=== PATIENT | male | born 1945 | race African-American/Black ===

== ENCOUNTER 2018-08-30 21:34 | Emergency (ER) | payer OTHER, MEDICAID ==
[~2018-08-30] VITALS: Ht 172.7 cm; Wt 68.9 kg
[2018-08-30] MEDS ORDERED: OMEPRAZOLE10 M1 ORAL (21:43)
[2018-08-30] MEDS ORDERED: TRAMADOL HCL50 MG ORAL (21:43)
[2018-08-30] MEDS ORDERED: PROSCAR5 MG ORAL (21:43)
[2018-08-30 21:50] VITALS: BP 163/87
--- NOTE | 2018-08-30 21:52 | NUR ---
ED Nurse Note: Patient walked in from home complaining of severe right arm and right leg pain 10/10. Also patient complaining ov nausea since this morning after he had milk. AAO x4, VSS at this time, skin is dry, intact, warm to touch. Per patient severe pain started today at the [facility].
[2018-08-30] MEDS ORDERED: Ketorolac 30mg Inj IV ONE (22:00)
--- NOTE | 2018-08-30 22:01 | Emergency Room Report ---
History of Present Illness General Chief Complaint: Pain Source: Patient Present Illness HPI Is a 72-year-old male with a history osteoporosis and arthritis. He presents with chief complaint of right-sided pain. Onset was acute and occurred about to 3 weeks ago. Pain came on all of a sudden. Pain is sharp and spastic in nature. Lasted a few seconds. He went to urgent care a few days ago. Said that they gave him fluids and Toradol and sent him home. Pain continue. He told triage nurse that he has abdominal pain but he has no pain with me. Nothing made it better. Nothing made it worse. No focal deficit. No slurred speech. Allergies: Coded Allergies: No Known Allergies (Unverified , 08/30/18) Patient History Past Medical History: see triage record, old chart reviewed Past Surgical History: other Pertinent Family History: none Social History: Denies: smoking Immunizations: other Reviewed Nursing Documentation: PMH: Agreed; PSxH: Agreed Nursing Documentation-PMH Past Medical History: No History, Except For Review of Systems Eye: Denies: eye pain, blurred vision ENT: Denies: ear pain, nose congestion, throat swelling Respiratory: Denies: cough, shortness of breath Cardiovascular: Denies: chest pain, palpitations Gastrointestinal: Denies: abdominal pain, diarrhea, nausea, vomiting Musculoskeletal: Reports: muscle pain; Denies: back pain, joint pain Skin: Denies: rash Neurological: Denies: headache, numbness Endocrine: Denies: increased thirst, increased urine Hematologic/Lymphatic: Denies: easy bruising All Other Systems: negative except mentioned in HPI Physical Exam Vital Signs Date Time Temp Pulse Resp B/P (MAP) Pulse Ox O2 Delivery O2 Flow Rate FiO2 08/30/18 21:36 98.8 106 21 163/87 98 Room Air vitals with high blood pressure Sp02 EP Interpretation: reviewed, normal General Appearance: well appearing, no apparent distress, alert Head: normocephalic, atraumatic Eyes: bilateral eye PERRL, bilateral eye EOMI ENT: hearing grossly normal, normal pharynx Neck: full range of motion, supple, no meningismus Respiratory: chest non-tender, lungs clear, normal breath sounds Cardiovascular #1: regular rate, rhythm, no murmur Gastrointestinal: normal bowel sounds, non tender, no mass, no organomegaly, no bruit, non-distended Musculoskeletal: back normal, gait/station normal, normal range of motion Psychiatric: mood/affect normal Skin: warm/dry Medical Decision Making Diagnostic Impression: Primary Impression: Right arm pain ER Course Patient presents with pain syndrome. Occasionally he would scream out in pain but there is no source of any pain. There is no evidence of any trauma. Abdomen exam is soft. This may be radicular pain since he has sciatica. He may have cervical radiculopathy. Lab Results Impression labs normal Last Vital Signs Date Time Temp Pulse Resp B/P (MAP) Pulse Ox O2 Delivery O2 Flow Rate FiO2 08/30/18 21:50 98.8 21 163/87 98 Room Air 08/30/18 21:36 106 Status: improved Disposition: HOME, SELF-CARE Condition: Stable Scripts Prednisone* (PREDNISONE*) 20 Mg Tablet 20 MG ORAL DAILY, #5 TAB Prov: Chago uDncan MD 08/30/18 Ibuprofen* (MOTRIN*) 600 Mg Tablet 600 MG ORAL THREE TIMES A DAY, #30 TAB 0 Refills Prov: Chago Duncan MD 08/30/18 Hydrocodone/Acetaminophen 5-325* (HYDROCODONE/ACETAMINOPHEN 5-325*) 1 Each Tablet 1 TAB ORAL Q6H PRN for For Pain, #20 TAB 0 Refills Prov: Chago Duncan MD 08/30/18 Additional Instructions: Follow-up with your doctor in 7 days. Return if symptom worsen. Chago Duncan MD Aug 30, 2018 22:01
[2018-08-30 22:30] LABS: APPEARANCE,URINE CLEAR; BILIRUBIN, URINE NEGATIVE (NEGATIVE); COLOR,URINE PALE YELLOW; EOSINOPHILS % (AUTO) 0.2 % (0.0-3.0); GLUCOSE, URINE (UA) NEGATIVE (NEGATIVE); HEMATOCRIT 44.2 % (42.0-52.0); HEMOGLOBIN 14.2 G/DL (14.2-18.0); KETONES,URINE NEGATIVE (NEGATIVE); LEUKOCYTE ESTERASE ,URINE NEGATIVE (NEGATIVE); LYMPHOCYTES % (AUTO) 20.3 % (20.0-45.0); MEAN CORPUSCULAR VOLUME 85 FL (80-99); MONOCYTES % (AUTO) 10.5 % (1.0-10.0); NEUTROPHILS % (AUTO) 67.1 % (45.0-75.0); NITRITE,URINE NEGATIVE (NEGATIVE); PH,URINE 6 (4.5-8.0); PLATELET COUNT 393 K/UL (150-450); PROTEIN,URINE NEGATIVE (NEGATIVE); RED BLOOD COUNT 5.19 M/UL (4.70-6.10); RED CELL DISTRIBUTION WIDTH 12.8 % (11.6-14.8); UROBILINOGEN,URINE NORMAL MG/DL (0.0-1.0); WHITE BLOOD COUNT 8.5 K/UL (4.8-10.8)
[2018-08-30 22:38] LABS: ANION GAP 11 mmol/L (5-15); BLOOD UREA NITROGEN 12 mg/dL (7-18); CALCIUM 9.7 MG/DL (8.5-10.1); CARBON DIOXIDE 28 MMOL/L (21-32); CHLORIDE 103 MMOL/L (98-107); POTASSIUM 4.4 MMOL/L (3.5-5.1); SODIUM 142 MMOL/L (136-145)
[2018-08-30] MEDS ORDERED: PREDNISONE20 MG ORAL (22:49)
[2018-08-30] MEDS ORDERED: IBUPROFEN600 MG ORAL (22:49)
[2018-08-30] MEDS ORDERED: HYDROCODON-ACE1 EA15 ORAL (22:49)
[2018-08-30 22:52] VITALS: BP 163/87
--- NOTE | 2018-08-30 22:53 | NUR ---
ER DISCHARGE NOTE: Patient is cleared to be discharged per ERMD, pt is aox4, on room air, with stable vital signs. pt was given dc and prescription instructions, pt was able to verbalize understanding, pt id band and iv site removed without complications. pt is able to ambulate with steady gait. pt took all belongings.
[2018-08-30] MEDS ORDERED: LACTULOSE20 GM/301 ORAL (22:58)
== END 2018-08-30 22:55 | disposition home or self-care (01) ==
LOC: EMR 22:00
DX: M79.601 Pain in right arm (principal)
CPT/HCPCS: 36415; 80048; 80307; 81001; 85025; 96361; 96374; 99284; J1885

== ENCOUNTER 2018-09-01 13:06 | Emergency (ER) | payer MEDICARE, MEDICAID ==
[~2018-09-01] VITALS: Ht 165.1 cm; Wt 68.0 kg
[~2018-09-01 13:06] MED LIST: HYDROCODON-ACE1 EA15 ORAL; IBUPROFEN600 MG ORAL; LACTULOSE20 GM/301 ORAL; OMEPRAZOLE10 M1 ORAL; PREDNISONE20 MG ORAL; PROSCAR5 MG ORAL; TRAMADOL HCL50 MG ORAL
[2018-09-01] MEDS ORDERED: UNOBMED (13:10)
--- NOTE | 2018-09-01 13:27 | NUR ---
ED Nurse Note: Patient presents to ER due to RUE/RLE x 3 days; report no injury; reports no redness or swelling. Patient ambulated to the restroom with steady gait. Patient able to move RUE without problem, hold urine specimen cup without problem. Provided ice packs. Bed in lowest position.
[2018-09-01] MEDS ORDERED: LORazepam Inj 2mg/ml 1ml IM ONE (13:45)
[2018-09-01] MEDS ORDERED: Ketorolac 30mg Inj IM ONE (13:45)
[2018-09-01] MEDS ORDERED: LORazepam 1mg tab ORAL ONE (13:45)
[2018-09-01 13:56] VITALS: BP 136/82
[2018-09-01] MEDS ORDERED: Isovue-300 100ml vial INJ PRN (14:15)
--- NOTE | 2018-09-01 14:20 | Emergency Room Report ---
History of Present Illness General Chief Complaint: Pain Source: Patient, Medical Record Present Illness HPI 72-year-old male presenting with right arm pain right leg pain as well as abdominal pain. He says that it's been that way for the last 2 weeks. For his right arm and right leg pain, he says it starts approximately and then goes distally. It is spasmodic and comes and goes. He was actually seen here in the emergency room 2 days ago, got steroids as well as [place] pills but says that has not been helping. He is able to move it fine. No swelling. No trauma. He is also complaining of generalized abdominal pain, chronic constipation. He is passing gas. No abdominal surgeries. He has been nauseous and not been able to eat he said. No chest pain or shortness of breath no fever chills Allergies: Coded Allergies: No Known Allergies (Unverified , 08/30/18) Patient History Past Medical History: see triage record Past Surgical History: none Pertinent Family History: none Reviewed Nursing Documentation: PMH: Agreed; PSxH: Agreed Nursing Documentation-PMH Past Medical History: No History, Except For Hx Hypertension: No - High cholesterol Hx Gastrointestinal Problems: No - Arthritis, osteporosis Review of Systems All Other Systems: negative except mentioned in HPI Physical Exam Vital Signs Date Time Temp Pulse Resp B/P (MAP) Pulse Ox O2 Delivery O2 Flow Rate FiO2 09/01/18 13:03 98.2 93 18 123/78 95 Room Air Sp02 EP Interpretation: reviewed, normal General Appearance: alert, GCS 15, non-toxic, mild distress Head: normocephalic, atraumatic Eyes: bilateral eye normal inspection, bilateral eye PERRL, bilateral eye EOMI ENT: normal ENT inspection, normal pharynx, normal voice, moist mucus membranes Neck: normal inspection, full range of motion, supple Respiratory: normal inspection, lungs clear, normal breath sounds, no respiratory distress, no retraction, no wheezing, speaking full sentences, chest symmetrical Cardiovascular #1: normal inspection, regular rate, rhythm, no edema, normal capillary refill Cardiovascular #2: 2+ radial (R), 2+ radial (L) Gastrointestinal: other - Generalized abdominal tenderness bilateral lower quadrants without guarding or rigidity, normal bowel sounds auscultated Genitourinary: no CVA tenderness Musculoskeletal: other - All extremities full range of motion, warm and well perfused, no swelling, no calf tenderness Neurologic: normal inspection, alert, oriented x3, responsive, motor strength/ tone normal, sensory intact, normal gait, speech normal Psychiatric: normal inspection, judgement/insight normal, memory normal Skin: normal inspection, normal color, no rash, warm/dry, well hydrated, normal turgor Medical Decision Making Diagnostic Impression: Primary Impression: Diverticulitis Additional Impression: Right arm pain ER Course 72-year-old male with right arm and right leg pain Also with abdominal pain for the last 2 weeks Differential Diagnosis: Right arm and leg pain, no signs of trauma, possibly musculoskeletal versus radiculopathy. Not concerned with DVT Gastritis, gastroenteritis, cholecystitis, appendicitis, diverticulitis, SBO, cardiac, UTI/pyelo Plan: Basic labs, ua, ekg pain control CT abdopelvis ER course: Patient has remained stable during ED stay. given pain meds +abx for diverticulitis At this time I do not know the reason for his right arm and right leg pain, however he is moving it fine there is no swelling at all. Says it's been chronic for a month. He's also follows up with his PCP He is tolerating by mouth, repeat abdominal exam is benign, his vital signs remained stable he stable for discharge to home Disposition: Patient is to be discharged to home. Prescriptions given are Ciprofloxacin and Flagyl Patient is instructed to follow up with their primary care doctor within 5 days. Strict return precautions discussed with patient such as fever, chills, worsening/severe abdominal pain, nausea, vomiting, black or bloody stools, which may indicate severe illness. Patient verbalizes understanding and agrees with plan. Please note that this Emergency Department Report was dictated using F[employer]ality[employer] coordinator technology software, occasionally this can lead to erroneous entry secondary to interpretation by the dictation equipment Rhythm Strip EP Interpretation: Yes Rate: 60 Rhythm: NSR, no PVCs, no ectopy Laboratory Tests Test 09/01/18 14:05 White Blood Count 10.7 K/UL (4.8-10.8) Red Blood Count 5.24 M/UL (4.70-6.10) Hemoglobin 14.0 G/DL (14.2-18.0) L Hematocrit 44.4 % (42.0-52.0) Mean Corpuscular Volume 85 FL (80-99) Mean Corpuscular Hemoglobin 26.7 PG (27.0-31.0) L Mean Corpuscular Hemoglobin Concent 31.5 G/DL (32.0-36.0) L Red Cell Distribution Width 12.8 % (11.6-14.8) Platelet Count 395 K/UL (150-450) Mean Platelet Volume 6.2 FL (6.5-10.1) L Neutrophils (%) (Auto) 67.0 % (45.0-75.0) Lymphocytes (%) (Auto) 23.2 % (20.0-45.0) Monocytes (%) (Auto) 8.0 % (1.0-10.0) Eosinophils (%) (Auto) 0.2 % (0.0-3.0) Basophils (%) (Auto) 1.6 % (0.0-2.0) Prothrombin Time 12.9 SEC (9.30-11.50) H Prothrombin Time INR 1.2 (0.9-1.1) H PTT 35 SEC (23-33) H Urine Color Pale yellow Urine Appearance Clear Urine pH 8 (4.5-8.0) Urine Specific [place] 1.010 (1.005-1.035) Urine Protein Negative (NEGATIVE) Urine Glucose (UA) Negative (NEGATIVE) Urine Ketones 1+ (NEGATIVE) H Urine Blood 1+ (NEGATIVE) H Urine Nitrite Negative (NEGATIVE) Urine Bilirubin Negative (NEGATIVE) Urine Urobilinogen Normal MG/DL (0.0-1.0) Urine Leukocyte Esterase Negative (NEGATIVE) Urine RBC 0-2 /HPF (0 - 0) H Urine WBC 0 /HPF (0 - 0) Urine Squamous Epithelial Cells None /LPF (NONE/OCC) Urine Amorphous Sediment Few /LPF (NONE) H Urine Bacteria Occasional /HPF (NONE) Sodium Level 140 MMOL/L (136-145) Potassium Level 4.8 MMOL/L (3.5-5.1) Chloride Level 101 MMOL/L (98-107) Carbon Dioxide Level 29 MMOL/L (21-32) Anion Gap 10 mmol/L (5-15) Blood Urea Nitrogen 11 mg/dL (7-18) Creatinine 1.0 MG/DL (0.55-1.30) Estimate Glomerular Filtration Rate mL/min (>60) Glucose Level 108 MG/DL (74-106) H Calcium Level 9.7 MG/DL (8.5-10.1) Total Bilirubin 0.5 MG/DL (0.2-1.0) Aspartate Amino Transferase (AST) 22 U/L (15-37) Alanine Aminotransferase (ALT) 34 U/L (12-78) Alkaline Phosphatase 94 U/L (46-116) Total Protein 8.4 G/DL (6.4-8.2) H Albumin 3.8 G/DL (3.4-5.0) Globulin 4.6 g/dL Albumin/Globulin Ratio 0.8 (1.0-2.7) L Lipase 75 U/L (73-393) CT/MRI/US Diagnostic Results CT/MRI/US Diagnostic Results : Imaging Test Ordered: CT ABDO PELVIS Impression Question of mild sigmoid diverticulitis. Correlate clinically no abscess identified. Had a hernia. Normal appendix. Small left inguinal hernia containing fat Last Vital Signs Date Time Temp Pulse Resp B/P (MAP) Pulse Ox O2 Delivery O2 Flow Rate FiO2 09/01/18 13:56 98.1 76 12 136/82 96 Room Air Disposition: HOME, SELF-CARE Condition: Stable Scripts Ciprofloxacin/Ciprofloxa Hcl (CIPRO XR 500 MG TABLET) 500 Mg Tbmp.24hr 500 MG ORAL EVERY 12 HOURS for 10 Days, #20 TAB Prov: Yuval Jacobson M.D. 09/01/18 Metronidazole* (FLAGYL*) 500 Mg Tablet 500 MG ORAL BID, #20 TAB Prov: Yuval Jacobson M.D. 09/01/18 Yuval Jacobson M.D. Sep 01, 2018 14:20
--- NOTE | 2018-09-01 14:34 | NUR ---
ED Nurse Note: Blood and urine has been collected and sent to lab.
[2018-09-01 14:43] LABS: BASOPHILS % (AUTO) 1.6 % (0.0-2.0); EOSINOPHILS % (AUTO) 0.2 % (0.0-3.0); HEMATOCRIT 44.4 % (42.0-52.0); LYMPHOCYTES % (AUTO) 23.2 % (20.0-45.0); MEAN CORPUSCULAR VOLUME 85 FL (80-99); PLATELET COUNT 395 K/UL (150-450); RED BLOOD COUNT 5.24 M/UL (4.70-6.10); RED CELL DISTRIBUTION WIDTH 12.8 % (11.6-14.8); WHITE BLOOD COUNT 10.7 K/UL (4.8-10.8)
[2018-09-01 15:03] LABS: ANION GAP 10 mmol/L (5-15); BLOOD UREA NITROGEN 11 mg/dL (7-18); CALCIUM 9.7 MG/DL (8.5-10.1); CARBON DIOXIDE 29 MMOL/L (21-32); CHLORIDE 101 MMOL/L (98-107); INR 1.2 (0.9-1.1); POTASSIUM 4.8 MMOL/L (3.5-5.1); SODIUM 140 MMOL/L (136-145)
[2018-09-01 15:15] LABS: ALANINE AMINOTRANSFERASE 34 U/L (12-78); ALBUMIN 3.8 G/DL (3.4-5.0); ALBUMIN/GLOBULIN RATIO 0.8 (1.0-2.7); ALKALINE PHOSPHATASE 94 U/L (46-116); ASPARTATE AMINO TRANSFERASE 22 U/L (15-37); BILIRUBIN,TOTAL 0.5 MG/DL (0.2-1.0)
[2018-09-01 15:16] LABS: APPEARANCE,URINE CLEAR; BILIRUBIN, URINE NEGATIVE (NEGATIVE); COLOR,URINE PALE YELLOW; GLUCOSE, URINE (UA) NEGATIVE (NEGATIVE); KETONES,URINE 1+ (NEGATIVE); LEUKOCYTE ESTERASE ,URINE NEGATIVE (NEGATIVE); NITRITE,URINE NEGATIVE (NEGATIVE); PH,URINE 8 (4.5-8.0); PROTEIN,URINE NEGATIVE (NEGATIVE); UROBILINOGEN,URINE NORMAL MG/DL (0.0-1.0)
--- NOTE | 2018-09-01 15:17 | NUR ---
ED Nurse Note: Pt went down for CT.
--- NOTE | 2018-09-01 15:32 | NUR ---
ED Nurse Note: Pt back from CT.
[2018-09-01 15:58] VITALS: BP 127/71
[2018-09-01] MEDS ORDERED: METRONIDAZOLE500 MG ORAL (17:01)
[2018-09-01] MEDS ORDERED: CIPRO XR 500 M500 MG ORAL (17:01)
[2018-09-01 18:07] VITALS: BP 138/72
--- NOTE | 2018-09-01 19:17 | Diagnostic Imaging Report ---
Indication: Abdominal pain Technique: Continuous helical transaxial imaging of the abdomen and pelvis was obtained from the lung bases to the pubic symphysis during intravenous contrast administration. Coronal 2-D reformats were also obtained. Study obtained in a Siemens sensation [address] Automatic Exposure Control was utilized. Total Dose length Product (DLP): 569.[address] Dose Index Volume (CTDIvol): 11.56 mGy Comparison: None Findings: The lung bases are clear. There is a small hiatal hernia. The gallbladder is unremarkable. The pancreas and spleen and liver appear unremarkable. The heart is enlarged. No nephrolithiasis or hydronephrosis demonstrated. The stomach is nondistended. There is thickening of the wall of the sigmoid colon. There are diverticula present. Consider mild diverticulitis but this is questionable. There is no significant perisigmoid inflammation. There is certainly no evidence of free fluid or abscess. Urinary bladder is unremarkable. There is a small left inguinal hernia containing fat. Appendix is normal. Aortoiliac calcifications are present. There is narrowing of intervertebral discs and accompanying endplate osteophyte formation. Hypertrophied facet joints also demonstrated. IMPRESSION: Question of mild sigmoid diverticulitis. Correlate clinically. No abscess identified. Atherosclerotic vascular disease Hiatal hernia Normal appendix Small left inguinal hernia containing fat Degenerative changes of the spine The CT scanner at [facility] is accredited by the [employer] and the scans are performed using dose optimization techniques as appropriate to a performed exam including Automatic Exposure control.
--- NOTE | 2018-09-02 14:59 | Cardiology Report ---
APPROVED REPORT EKG Measurement Heart [id number] Normal sinus rhythm Cannot rule out Anterior infarct, age undetermined Abnormal ECG
== END 2018-09-01 18:10 | disposition home or self-care (01) ==
LOC: EDBD 13:06 → EMR 14:46
DX: K57.32 Diverticulitis of large intestine without perforation or abscess without bleeding (principal); M79.601 Pain in right arm; M79.604 Pain in right leg
CPT/HCPCS: 36415; 74177; 80053; 81003; 82962; 83690; 85025; 85610; 85730; 93005; 96361; 96365; 96368; 96372; 96375; 99284; J0744; J1885; J2405; Q9967

== ENCOUNTER 2019-04-07 19:36 | Emergency (ER) | payer MEDICARE, MEDICAID ==
[~2019-04-07] VITALS: Ht 170.2 cm; Wt 65.8 kg
[~2019-04-07 19:36] MED LIST changes: +CIPRO XR 500 M500 MG ORAL; +METRONIDAZOLE500 MG ORAL; +UNOBMED
[2019-04-07] MEDS ORDERED: SIMVASTATIN5 MG ORAL (19:46)
[2019-04-07] MEDS ORDERED: TRAZODONE HCL150 MG ORAL (19:46)
[2019-04-07] MEDS ORDERED: FLOMAX0.4 MG ORAL (19:46)
--- NOTE | 2019-04-07 20:07 | Emergency Room Report ---
History of Present Illness General Chief Complaint: Back Pain-No Injury Source: Patient Present Illness HPI Disclaimer: Please note that this report is being documented using [employer] technology. This can lead to erroneous entry secondary to incorrect interpretation by the dictating instrument. HPI: 73-year-old male with history of hypertension, hyperlipidemia, BPH, diverticulitis presents for evaluation of extremity pain and back pain. Patient states that he has been experience in pain and cramping in his right triceps, right calf and his right quadriceps muscle for the past 2 days. No injury. Denies pain in the ankle, knee, hip, wrist, elbow or shoulder. Has full range of motion and denies any loss of strength or sensation. States he had a previous episode of similar muscle cramping when he had diverticulitis but he currently denies abdominal pain, nausea, vomiting, diarrhea, cramping. He complains of urinary frequency though he states this is his baseline given BPH. He denies dysuria or hematuria. Does not inject any medications or IV drugs. Denies any recent fevers, chills. PMH: Diverticulitis, hypertension, hyperlipidemia, BPH PSH: Denies Allergies: Denies Social Hx: Denies drug or alcohol use Allergies: Coded Allergies: No Known Allergies (Unverified , 08/30/18) Nursing Documentation-PMH Past Medical History: No History, Except For Hx Hypertension: No - High cholesterol Hx Gastrointestinal Problems: No - Arthritis, osteporosis Review of Systems All Other Systems: negative except mentioned in HPI Physical Exam Vital Signs Date Time Temp Pulse Resp B/P (MAP) Pulse Ox O2 Delivery O2 Flow Rate FiO2 04/07/19 19:39 98.4 105 14 157/88 (111) 98 Room Air General: Awake and alert, no acute distress HEENT: NC/AT. EOMI. Resp: Normal work of breathing Abdomen: Nondistended, nontender, soft. No masses, no rebound. Skin: Intact. No abrasions, laceration or rash over the exposed skin MSK: Normal tone and bulk. Moving all extremities. No obvious deformity. Tenderness palpation over the right triceps, right quadriceps and right calf. Compartments are soft. No masses or spasm appreciated. Peripheral pulses are 2 +. Neuro: Awake and alert. Mentating appropriately sensation is intact to light touch over the dermatomes of the upper and lower extremity's bilaterally. No saddle anesthesia. Spine: No tenderness, step-off or deformity in the cervical, thoracic or lumbosacral spine. No significant paraspinal tenderness. Medical Decision Making Diagnostic Impression: Primary Impression: Myalgia Additional Impression: UTI (urinary tract infection) ER Course This is a 73-year-old male presenting for evaluation of atraumatic muscle pain and cramping in the right arm and leg. Differential includes but is not limited to overuse injury, statin use, dehydration, strain, spasm. Patient is concerned that this may be an early sign of diverticulitis though he has no abdominal pain, has a soft and benign abdominal exam and is no other complaints at this time. No red flag symptoms of cauda equina or spinal epidural abscess are appreciated. Will obtain a urine sample given his urinary frequency but he denies any dysuria or hematuria. He will be treated with Toradol. Laboratory Tests Test 04/07/19 20:00 Urine Color Yellow Urine Appearance Slightly cloudy Urine pH 5 (4.5-8.0) Urine Specific [place] 1.025 (1.005-1.035) Urine Protein 2+ (NEGATIVE) H Urine Glucose (UA) Negative (NEGATIVE) Urine Ketones 3+ (NEGATIVE) H Urine Blood 4+ (NEGATIVE) H Urine Nitrite Negative (NEGATIVE) Urine Bilirubin Negative (NEGATIVE) Urine Urobilinogen Normal MG/DL (0.0-1.0) Urine Leukocyte Esterase 1+ (NEGATIVE) H Urine RBC 15-20 /HPF (0 - 0) H Urine WBC 5-10 /HPF (0 - 0) H Urine Squamous Epithelial Cells None /LPF (NONE/OCC) Urine Bacteria Moderate /HPF (NONE) H Urine Mucus Many /LPF (NONE/OCC) H Reevaluation Time: 20:57 Last Vital Signs Date Time Temp Pulse Resp B/P (MAP) Pulse Ox O2 Delivery O2 Flow Rate FiO2 04/07/19 19:39 98.4 105 14 157/88 (111) 98 Room Air Reevaluation Impression Urinalysis is consistent with acute urinary tract infection and the patient will be treated with Keflex. He will be given Motrin for his myalgias and instructed to follow-up with his PMD to discuss both this diagnosis of urinary tract infection and new medications but also to discuss his myalgias may be secondary to statin use. Overall, he is well-appearing with stable vital signs , afebrile and has no other complaints at this time. He will be discharged for outpatient follow-up. Discussed reasons to return to the emergency department. He understands and agrees with the treatment plan. Disposition: HOME, SELF-CARE Condition: Stable Scripts Ibuprofen* (MOTRIN*) 600 Mg Tablet 600 MG ORAL Q8H PRN for For Pain, #30 TAB 0 Refills Prov: Alonso Du MD 04/07/19 Cephalexin* (KEFLEX*) 500 Mg Capsule 500 MG ORAL EVERY 12 HOURS for 7 Days, #14 CAP 0 Refills Prov: Alonso Du MD 04/07/19 Alonso Du MD Apr 07, 2019 20:07
--- NOTE | 2019-04-07 20:10 | NUR ---
ED Nurse Note: Recieved pt from home, here with c/o increasing back pain at 10/10, pt ahs chronic myalgia and has increased pain, pt asking for pain meds, denies cp, sob, injury or fall or any other complaints or discofmorts.
[2019-04-07 20:14] LABS: APPEARANCE,URINE SLIGHTLY CLOUDY; BILIRUBIN, URINE NEGATIVE (NEGATIVE); COLOR,URINE YELLOW; GLUCOSE, URINE (UA) NEGATIVE (NEGATIVE); KETONES,URINE 3+ (NEGATIVE); LEUKOCYTE ESTERASE ,URINE 1+ (NEGATIVE); NITRITE,URINE NEGATIVE (NEGATIVE); PH,URINE 5 (4.5-8.0); PROTEIN,URINE 2+ (NEGATIVE); UROBILINOGEN,URINE NORMAL MG/DL (0.0-1.0)
[2019-04-07] MEDS ORDERED: Ketorolac 30mg Inj IM ONE ×2 (20:15→21:15)
[2019-04-07] MEDS ORDERED: HYDROcodone/Acetamin 7.5/325 tab ORAL ONE (20:30)
[2019-04-07] MEDS ORDERED: CEPHALEXIN500 MG ORAL (20:34)
[2019-04-07] MEDS ORDERED: IBUPROFEN600 MG ORAL (20:47)
[2019-04-07 21:45] VITALS: BP 148/86
--- NOTE | 2019-04-07 21:50 | NUR ---
ER DISCHARGE NOTE: Patient is cleared to be discharged per ERMD, pt is aox4, on room air, with stable vital signs. pt was given dc and prescription instructions, pt was able to verbalize understanding, pt id band removed without complications. pt is able to ambulate with steady gait. pt took all belongings.
[2019-04-07 22:00] VITALS: BP 148/86
== END 2019-04-07 22:00 | disposition home or self-care (01) ==
LOC: EMR 20:00
DX: M79.10 Myalgia, unspecified site (principal); N39.0 Urinary tract infection, site not specified; M19.90 Unspecified osteoarthritis, unspecified site; M81.0 Age-related osteoporosis without current pathological fracture; N40.0 Benign prostatic hyperplasia without lower urinary tract symptoms; K57.90 Diverticulosis of intestine, part unspecified, without perforation or abscess without bleeding; I10 Essential (primary) hypertension; E78.5 Hyperlipidemia, unspecified
CPT/HCPCS: 81003; 87086; 99283; J1885